=== PATIENT | male | born 1945 | race Caucasian/White ===

== ENCOUNTER 2023-02-03 09:58 | Inpatient (IN) | payer MEDICARE ==
[~2023-02-03] VITALS: Ht 170.2 cm; Wt 53.1 kg
[2023-02-03] MEDS ORDERED: METO-356 PO (10:34)
[2023-02-03] MEDS ORDERED: OMEP20TA5 PO (10:34)
[2023-02-03] MEDS ORDERED: ESCI20TA44 PO (10:34)
[2023-02-03] MEDS ORDERED: CLOP75TA15 PO (10:34)
[2023-02-03] MEDS ORDERED: LEVO112T5 PO (10:34)
[2023-02-03] MEDS ORDERED: SIMV-49 PO (10:34)
[2023-02-03] MEDS ORDERED: MEGE20TA4 PO (10:34)
[2023-02-03] MEDS ORDERED: IV NORMAL SALINE 1000 ML BAG IV ONE ×2 (11:00→12:15)
[2023-02-03 11:29] LABS: BASOPHILS # (AUTO) 0.1 K/UL (0.0-0.2); BASOPHILS % (AUTO) 0.7 % (0.0-2.0); DIFFERENTIAL COMMENT 1; EOSINOPHILS # (AUTO) 0.2 K/uL (0.0-0.7); EOSINOPHILS % (AUTO) 2.8 % (0.0-7.0); HEMATOCRIT 37.8 % (36.7-47.1); HEMOGLOBIN 12.7 g/dL (12.5-16.3); LYMPHOCYTES # (AUTO) 1.1 K/uL (0.8-4.8); LYMPHOCYTES % (AUTO) 13.3 % (20.5-51.5); MEAN CORPUSCULAR HEMOGLOBIN 32.2 uug (23.8-33.4); MEAN CORPUSCULAR HGB CONC 34 g/dL (32.5-36.3); MEAN CORPUSCULAR VOLUME 95.6 fL (73.0-96.2); MONOCYTES # (AUTO) 0.8 K/uL (0.1-1.30); MONOCYTES % (AUTO) 9.7 % (0.0-11.0); NEUTROPHILS # (AUTO) 6.3 K/uL (1.8-8.9); NEUTROPHILS % (AUTO) 73.5 % (38.5-71.5); PLATELET COUNT (AUTO) 248 K/uL (152-348); RED BLOOD CELL COUNT(AUTO) 3.95 MIL/uL (4.06-5.63); RED CELL DISTRIBUTION WIDTH 14.4 % (12.1-16.2); WHITE BLOOD COUNT (AUTO) 8.5 K/uL (3.6-10.2)
[2023-02-03 11:58] LABS: BILIRUBIN,TOTAL 0.5 mg/dL (0.2-1.0); CALCIUM 8.8 mg/dL (8.5-10.1); CREATININE 0.9 mg/dL (0.6-1.3); POTASSIUM 3.4 mmol/L (3.5-5.1); TOTAL PROTEIN, SERUM 7.8 g/dL (6.4-8.2)
[2023-02-03 12:00] LABS: LACTIC ACID 2.6 mmol/L (0.4-2.0)
[2023-02-03] MEDS ORDERED: ONDANSETRON 4 MG/2 ML VIAL IV ONE (12:15)
[2023-02-03] MEDS ORDERED: levoFLOXacin 500 MG/D5W 100ML PIGGYBACK IV ONE (12:15)
[2023-02-03] MEDS ORDERED: MORPHINE SULFATE 4 MG/1 ML DISP.SYRIN IV ONE (12:15)
[2023-02-03] MEDS ORDERED: MORPHINE SULFATE 4 MG/1 ML DISP.SYRIN ONE (13:06)
[2023-02-03] MEDS ORDERED: levoFLOXacin 500 MG/D5W 100 ML ONE (13:06)
[2023-02-03] MEDS ORDERED: ONDANSETRON 4 MG/2 ML VIAL ONE (13:06)
[2023-02-03] MEDS ORDERED: ENOXAPARIN SODIUM 40 MG/0.4 ML DISP.SYRIN SQ SCH (13:30)
[2023-02-03] MEDS ORDERED: REMEDY ESSENTIAL ZINC PASTE 113 GM TP PRN (13:30)
[2023-02-03] MEDS ORDERED: MAGNESIUM HYDROXIDE 30 ML LIQUID UDC PO PRN (13:30)
[2023-02-03] MEDS ORDERED: ACETAMINOPHEN 325 MG TABLET PO PRN (13:30)
[2023-02-03] MEDS ORDERED: ONDANSETRON 4 MG/2 ML VIAL IV PRN (13:30)
[2023-02-03 13:41] LABS: *BILIRUBIN,URIN NEGATIVE (NEGATIVE); *BLOOD, URINE NEGATIVE (NEGATIVE); *CLARITY,URINE CLEAR (CLEAR); *COLOR,URINE YELLOW (YELLOW); *KETONES,URINE 2+ (NEGATIVE); *PROTEIN,URINE NEGATIVE (NEGATIVE); LEUKOCYTE ESTERASE ,URINE NEGATIVE (NEGATIVE); NITRITE, URINE NEGATIVE (NEGATIVE); UGLUCOSE NEGATIVE (NEGATIVE)
[2023-02-03] MEDS ORDERED: ENOXAPARIN SODIUM 40 MG/0.4 ML DISP.SYRIN SQ ONE (14:04)
[2023-02-03 14:15] LABS: BACTERIA,URINE NONE SEEN /HPF (NONE SEEN); RBC,URINE NONE SEEN /HPF (0-3); SQUAMOUS EPITHELIAL CELL,UR FEW /HPF (NONE SEEN); WBC,URINE 0-3 /HPF (0-3)
[2023-02-03] MEDS: MEGESTROL ACETATE 20 MG TABLET PO SCH (18:01)
[2023-02-03] MEDS ORDERED: SIMVASTATIN 40 MG TABLET ONE (18:35)
[2023-02-03] MEDS: SIMVASTATIN 40 MG TABLET PO SCH (18:37)
[2023-02-03] MEDS ORDERED: HYDROCODONE/APAP 5-325MG TABLET ONE (20:50)
[2023-02-03] MEDS: HYDROCODONE/APAP 5-325MG TABLET PO PRN (20:55)
[2023-02-03 21:43] VITALS: BP 112/61; TEMP 98.4; O2SAT 95
[2023-02-04 04:12] VITALS: BP 128/67; TEMP 98; O2SAT 97
[2023-02-04] MEDS: LEVOTHYROXINE SODIUM 112 MCG TABLET PO SCH (06:27)
[2023-02-04] MEDS: PANTOPRAZOLE SODIUM 40 MG TABLET.DR PO SCH (06:27)
[2023-02-04] MEDS: HYDROCODONE/APAP 5-325MG TABLET PO PRN ×3 (06:36→16:28)
[2023-02-04 06:38] LABS: BASOPHILS # (AUTO) 0.1 K/UL (0.0-0.2); BASOPHILS % (AUTO) 1.1 % (0.0-2.0); EOSINOPHILS # (AUTO) 0.2 K/uL (0.0-0.7); EOSINOPHILS % (AUTO) 3.8 % (0.0-7.0); HEMATOCRIT 32.9 % (36.7-47.1); HEMOGLOBIN 11.5 g/dL (12.5-16.3); LYMPHOCYTES % (AUTO) 17.8 % (20.5-51.5); MEAN CORPUSCULAR HEMOGLOBIN 32.9 uug (23.8-33.4); MEAN CORPUSCULAR HGB CONC 35 g/dL (32.5-36.3); MONOCYTES # (AUTO) 0.7 K/uL (0.1-1.30); MONOCYTES % (AUTO) 11.7 % (0.0-11.0); NEUTROPHILS # (AUTO) 3.7 K/uL (1.8-8.9); NEUTROPHILS % (AUTO) 65.6 % (38.5-71.5); PLATELET COUNT (AUTO) 223 K/uL (152-348); RED CELL DISTRIBUTION WIDTH 14.5 % (12.1-16.2); WHITE BLOOD COUNT (AUTO) 5.6 K/uL (3.6-10.2)
[2023-02-04 06:42] LABS: DIFFERENTIAL COMMENT 1
[2023-02-04 07:00] LABS: CALCIUM 8.2 mg/dL (8.5-10.1); CREATININE 0.8 mg/dL (0.6-1.3); MAGNESIUM 1.7 mg/dL (1.8-2.4); PHOSPHOROUS 2.4 mg/dL (2.5-4.9)
[2023-02-04 07:15] LABS: POTASSIUM 2.5 mmol/L (3.5-5.1)
[2023-02-04] MEDS ORDERED: POTASSIUM CHLORIDE 20 MEQ TAB.PRT.SR PO ONE (08:15)
[2023-02-04] MEDS: MEGESTROL ACETATE 20 MG TABLET PO SCH ×2 (08:44→16:28)
[2023-02-04] MEDS: CLOPIDOGREL 75 MG TABLET PO SCH (08:46)
[2023-02-04] MEDS: METOPROLOL SUCCINATE XL 25 MG TAB.SR.24H PO SCH (08:46)
[2023-02-04] MEDS: ENOXAPARIN SODIUM 40 MG/0.4 ML DISP.SYRIN SQ SCH ×2 (08:48→20:46)
[2023-02-04] MEDS ORDERED: MAGNESIUM OXIDE 400 MG TABLET PO ONE (11:00)
[2023-02-04] MEDS ORDERED: NEUTRA PHOS PACKET PO ONE (11:00)
[2023-02-04 13:55] VITALS: BP 111/60; TEMP 97; O2SAT 100
[2023-02-04 16:03] VITALS: BP 149/63; TEMP 97.2; O2SAT 97
[2023-02-04] MEDS: SIMVASTATIN 40 MG TABLET PO SCH (17:07)
[2023-02-04] MEDS: MORPHINE SULFATE 4 MG/1 ML DISP.SYRIN IV PRN (17:53)
[2023-02-04 20:28] VITALS: BP 125/68; TEMP 99; O2SAT 95
[2023-02-05 04:34] VITALS: BP 150/70; TEMP 98.2; O2SAT 96
[2023-02-05] MEDS: LEVOTHYROXINE SODIUM 112 MCG TABLET PO SCH (06:21)
[2023-02-05] MEDS: PANTOPRAZOLE SODIUM 40 MG TABLET.DR PO SCH (06:21)
[2023-02-05] MEDS: MORPHINE SULFATE 4 MG/1 ML DISP.SYRIN IV PRN (06:58)
[2023-02-05 07:06] LABS: CALCIUM 8.2 mg/dL (8.5-10.1); CREATININE 0.7 mg/dL (0.6-1.3); MAGNESIUM 1.8 mg/dL (1.8-2.4); PHOSPHOROUS 2.2 mg/dL (2.5-4.9); POTASSIUM 2.9 mmol/L (3.5-5.1)
[2023-02-05] MEDS: MEGESTROL ACETATE 20 MG TABLET PO SCH ×2 (08:58→16:55)
[2023-02-05] MEDS: CLOPIDOGREL 75 MG TABLET PO SCH (08:58)
[2023-02-05] MEDS: METOPROLOL SUCCINATE XL 25 MG TAB.SR.24H PO SCH (08:58)
[2023-02-05] MEDS: HYDROCODONE/APAP 5-325MG TABLET PO PRN ×3 (09:04→19:36)
[2023-02-05] MEDS: POTASSIUM CHLORIDE 10 MEQ TAB.PRT.SR PO SCH ×3 (10:43→15:24)
[2023-02-05 11:20] VITALS: BP 129/59; TEMP 98.4; O2SAT 97
[2023-02-05 15:08] VITALS: BP 148/65; TEMP 98; O2SAT 96
[2023-02-05] MEDS ORDERED: NEUTRA PHOS PACKET PO SCH (16:30)
[2023-02-05] MEDS: SIMVASTATIN 40 MG TABLET PO SCH (16:56)
[2023-02-05] MEDS: ENOXAPARIN SODIUM 40 MG/0.4 ML DISP.SYRIN SQ SCH (20:20)
[2023-02-05 20:21] VITALS: BP 99/73; TEMP 98.2; O2SAT 98
[2023-02-06 04:25] VITALS: BP 165/67; TEMP 98.1
[2023-02-06] MEDS: HYDROCODONE/APAP 5-325MG TABLET PO PRN (06:34)
[2023-02-06] MEDS: LEVOTHYROXINE SODIUM 112 MCG TABLET PO SCH (06:34)
[2023-02-06] MEDS: PANTOPRAZOLE SODIUM 40 MG TABLET.DR PO SCH (06:34)
[2023-02-06 06:58] LABS: CREATININE 0.7 mg/dL (0.6-1.3); PHOSPHOROUS 2.7 mg/dL (2.5-4.9); POTASSIUM 4.3 mmol/L (3.5-5.1)
[2023-02-06 07:14] LABS: CALCIUM 9.2 mg/dL (8.5-10.1)
[2023-02-06 07:33] LABS: BASOPHILS # (AUTO) 0.1 K/UL (0.0-0.2); BASOPHILS % (AUTO) 0.8 % (0.0-2.0); EOSINOPHILS # (AUTO) 0.1 K/uL (0.0-0.7); EOSINOPHILS % (AUTO) 1.7 % (0.0-7.0); HEMATOCRIT 39.3 % (36.7-47.1); HEMOGLOBIN 13.6 g/dL (12.5-16.3); LYMPHOCYTES % (AUTO) 12.9 % (20.5-51.5); MEAN CORPUSCULAR HEMOGLOBIN 32.8 uug (23.8-33.4); MEAN CORPUSCULAR HGB CONC 35 g/dL (32.5-36.3); MONOCYTES # (AUTO) 0.7 K/uL (0.1-1.30); NEUTROPHILS # (AUTO) 6.1 K/uL (1.8-8.9); NEUTROPHILS % (AUTO) 75.6 % (38.5-71.5); PLATELET COUNT (AUTO) 293 K/uL (152-348); RED BLOOD CELL COUNT(AUTO) 4.14 MIL/uL (4.06-5.63); RED CELL DISTRIBUTION WIDTH 14.5 % (12.1-16.2); WHITE BLOOD COUNT (AUTO) 8.1 K/uL (3.6-10.2)
[2023-02-06 07:48] LABS: DIFFERENTIAL COMMENT 1
[2023-02-06 08:01] LABS: MAGNESIUM 1.9 mg/dL (1.8-2.4); PHOSPHOROUS 2.8 mg/dL (2.5-4.9)
[2023-02-06] MEDS: MEGESTROL ACETATE 20 MG TABLET PO SCH ×2 (08:44→16:38)
[2023-02-06] MEDS: METOPROLOL SUCCINATE XL 25 MG TAB.SR.24H PO SCH (08:44)
[2023-02-06] MEDS: CLOPIDOGREL 75 MG TABLET PO SCH (08:44)
[2023-02-06] MEDS: PREGABALIN 25 MG CAPSULE PO SCH ×2 (09:40→16:38)
[2023-02-06] MEDS: MORPHINE SULFATE 4 MG/1 ML DISP.SYRIN IV PRN (09:42)
[2023-02-06 11:24] VITALS: BP 108/80; TEMP 98.2; O2SAT 96
[2023-02-06] MEDS ORDERED: PREG25CA PO (12:42)
[2023-02-06] MEDS ORDERED: LEVO125T8 PO (12:42)
[2023-02-06 15:19] VITALS: BP 111/61; TEMP 98.2; O2SAT 96
[2023-02-06] MEDS ORDERED: ENSURE ENLIVE (VAN) 240 ML LIQUID PO SCH (17:00)
[2023-02-06] MEDS: SIMVASTATIN 40 MG TABLET PO SCH (17:30)
[2023-02-07] MEDS ORDERED: LEVOTHYROXINE SODIUM 125 MCG TABLET PO SCH (07:00)
== END 2023-02-06 18:00 | DRG 92 ==
LOC: ER 09:58 → TRANSITION 17:18 → MEDSURG3 20:41
PROVIDERS: ADMIT Nurse Practitioner Acute Care; ATTEND Nurse Practitioner Acute Care
DX: G72.3 Periodic paralysis (principal); C34.90 Malignant neoplasm of unspecified part of unspecified bronchus or lung; R53.1 Weakness; R29.6 Repeated falls; E86.0 Dehydration; E03.9 Hypothyroidism, unspecified; K21.9 Gastro-esophageal reflux disease without esophagitis; Z91.199 Patient's noncompliance with other medical treatment and regimen due to unspecified reason; Z91.148 Patient's other noncompliance with medication regimen for other reason; Z86.73 Personal history of transient ischemic attack (TIA), and cerebral infarction without residual deficits; Z88.0 Allergy status to penicillin; M54.50 Low back pain, unspecified; S22.43XD Multiple fractures of ribs, bilateral, subsequent encounter for fracture with routine healing; W19.XXXD Unspecified fall, subsequent encounter; G93.89 Other specified disorders of brain
CPT/HCPCS: 36415; 70450; 71045; 83605; 83735; 84100; 84443; 84484; 85025; G0378; J1650; J1956; J2270; J2405; J7040

== ENCOUNTER 2023-02-06 17:20 | Inpatient (IN) | payer MEDICARE ==
[~2023-02-06] VITALS: Ht 170.2 cm; Wt 51.7 kg
[~2023-02-06 17:20] MED LIST: CLOP75TA15 PO; ESCI20TA44 PO; LEVO112T5 PO; LEVO125T8 PO; MEGE20TA4 PO; METO-356 PO; OMEP20TA5 PO; PREG25CA PO; SIMV-49 PO
[2023-02-06] MEDS ORDERED: REMEDY ESSENTIAL ZINC PASTE 113 GM TOP PRN (20:15)
[2023-02-06 20:27] VITALS: BP 121/66; TEMP 98.3; O2SAT 95
[2023-02-06] MEDS ORDERED: ACETAMINOPHEN 325 MG TABLET PO PRN (21:00)
[2023-02-06] MEDS ORDERED: TRAMADOL HCL 50 MG TABLET PO PRN (21:00)
[2023-02-07 04:20] VITALS: BP 112/73; TEMP 98.3; O2SAT 96
[2023-02-07 07:45] VITALS: BP 141/68; TEMP 98.1; O2SAT 96
[2023-02-07] MEDS: DULOXETINE 30 MG CAPSULE.DR PO SCH (10:37)
[2023-02-07] MEDS: ENSURE ENLIVE (VAN) 240 ML LIQUID PO SCH ×2 (13:48→17:44)
[2023-02-07 16:00] VITALS: BP 121/52; TEMP 98.4; O2SAT 98
[2023-02-07] MEDS ORDERED: HYDROCODONE/APAP 5-325MG TABLET PO PRN (17:45)
[2023-02-07] MEDS ORDERED: IV NORMAL SALINE 250 ML IV ONE (17:47)
[2023-02-07] MEDS ORDERED: SWABABLE VALVE TRANSFER SET EA MC ONE (17:47)
[2023-02-07] MEDS ORDERED: IOHEXOL 300MG/ML 100 ML INFUS..BTL ONE (17:47)
[2023-02-07] MEDS: CLOPIDOGREL 75 MG TABLET PO SCH (17:50)
[2023-02-07 20:20] VITALS: BP 127/69; TEMP 97.9; O2SAT 97
[2023-02-07] MEDS ORDERED: SIMVASTATIN 40 MG TABLET PO SCH (21:00)
[2023-02-08 04:25] VITALS: BP 147/78; TEMP 97.7; O2SAT 97
[2023-02-08] MEDS ORDERED: LEVOTHYROXINE SODIUM 125 MCG TABLET PO SCH (07:00)
[2023-02-08 08:00] VITALS: BP 101/68; TEMP 97.7; O2SAT 98
[2023-02-08] MEDS: DULOXETINE 30 MG CAPSULE.DR PO SCH (08:21)
[2023-02-08] MEDS: ENSURE ENLIVE (VAN) 240 ML LIQUID PO SCH ×3 (08:21→16:13)
[2023-02-08] MEDS: CLOPIDOGREL 75 MG TABLET PO SCH (08:21)
[2023-02-08] MEDS: MEGESTROL ACETATE 20 MG TABLET PO SCH ×2 (09:03→16:13)
[2023-02-08] MEDS: METOPROLOL SUCCINATE XL 25 MG TAB.SR.24H PO SCH (09:04)
[2023-02-08] MEDS: PREGABALIN 25 MG CAPSULE PO SCH ×2 (09:04→16:13)
[2023-02-08 10:12] LABS: THYROID STIMULATING HORMONE 43.362 mIU/mL (0.358-3.740)
[2023-02-08 15:53] VITALS: BP 103/57; TEMP 98.3; O2SAT 97
[2023-02-08 20:13] VITALS: BP 133/73; TEMP 98.4; O2SAT 100
[2023-02-08] MEDS: SIMVASTATIN 10 MG TABLET PO SCH (20:26)
[2023-02-09 06:03] VITALS: BP 122/76; TEMP 98; O2SAT 98
[2023-02-09] MEDS: LEVOTHYROXINE SODIUM 150 MCG TABLET PO SCH (06:08)
[2023-02-09] MEDS: HYDROCODONE/APAP 10-325 MG TABLET PO PRN ×2 (06:09→20:18)
[2023-02-09 07:49] VITALS: BP 110/74; TEMP 99; O2SAT 97
[2023-02-09] MEDS: CLOPIDOGREL 75 MG TABLET PO SCH (08:10)
[2023-02-09] MEDS: MEGESTROL ACETATE 20 MG TABLET PO SCH ×2 (08:10→16:20)
[2023-02-09] MEDS: ENSURE ENLIVE (VAN) 240 ML LIQUID PO SCH ×3 (08:10→16:20)
[2023-02-09] MEDS: DULOXETINE 30 MG CAPSULE.DR PO SCH (08:10)
[2023-02-09] MEDS: PREGABALIN 25 MG CAPSULE PO SCH ×2 (08:10→16:20)
[2023-02-09] MEDS: METOPROLOL SUCCINATE XL 25 MG TAB.SR.24H PO SCH (08:10)
[2023-02-09 16:00] VITALS: BP 120/53; TEMP 98.7; O2SAT 96
[2023-02-09 20:00] VITALS: BP 107/52; TEMP 98.6; O2SAT 96
[2023-02-09] MEDS: SIMVASTATIN 10 MG TABLET PO SCH (20:18)
[2023-02-10] MEDS: HYDROCODONE/APAP 10-325 MG TABLET PO PRN ×2 (05:36→12:48)
[2023-02-10] MEDS: LEVOTHYROXINE SODIUM 150 MCG TABLET PO SCH (06:22)
[2023-02-10 08:00] VITALS: BP 95/72; TEMP 98.3; O2SAT 96
[2023-02-10] MEDS: PREGABALIN 25 MG CAPSULE PO SCH ×2 (08:03→16:25)
[2023-02-10] MEDS: MEGESTROL ACETATE 20 MG TABLET PO SCH ×2 (08:03→16:25)
[2023-02-10] MEDS: METOPROLOL SUCCINATE XL 25 MG TAB.SR.24H PO SCH (08:03)
[2023-02-10] MEDS: DULOXETINE 30 MG CAPSULE.DR PO SCH (08:03)
[2023-02-10] MEDS: CLOPIDOGREL 75 MG TABLET PO SCH (08:03)
[2023-02-10] MEDS: ENSURE ENLIVE (VAN) 240 ML LIQUID PO SCH ×3 (08:04→16:25)
[2023-02-10] MEDS: LIDOCAINE 5% PATCH TD SCH (08:12)
[2023-02-10 16:25] VITALS: BP 115/61; TEMP 98.1; O2SAT 100
[2023-02-10] MEDS: SIMVASTATIN 10 MG TABLET PO SCH (22:00)
[2023-02-10 22:14] VITALS: BP 114/59; TEMP 98; O2SAT 96
[2023-02-11 04:00] VITALS: BP 109/61; TEMP 98.1; O2SAT 95
[2023-02-11] MEDS: HYDROCODONE/APAP 10-325 MG TABLET PO PRN ×2 (04:27→21:36)
[2023-02-11 05:06] VITALS: BP 109/61; TEMP 98.1
[2023-02-11] MEDS: LEVOTHYROXINE SODIUM 150 MCG TABLET PO SCH (07:14)
[2023-02-11 07:42] VITALS: BP 129/58; TEMP 98.2; O2SAT 98
[2023-02-11] MEDS: LIDOCAINE 5% PATCH TD SCH (08:20)
[2023-02-11] MEDS: PREGABALIN 25 MG CAPSULE PO SCH ×2 (08:20→16:41)
[2023-02-11] MEDS: MEGESTROL ACETATE 20 MG TABLET PO SCH ×2 (08:21→16:41)
[2023-02-11] MEDS: DULOXETINE 30 MG CAPSULE.DR PO SCH (08:21)
[2023-02-11] MEDS: CLOPIDOGREL 75 MG TABLET PO SCH (08:21)
[2023-02-11] MEDS: METOPROLOL SUCCINATE XL 25 MG TAB.SR.24H PO SCH (08:21)
[2023-02-11] MEDS: ENSURE ENLIVE (VAN) 240 ML LIQUID PO SCH ×3 (08:22→16:41)
[2023-02-11 16:00] VITALS: BP 121/62; TEMP 98.6; O2SAT 99
[2023-02-11 20:00] VITALS: BP 134/36; TEMP 98; O2SAT 100
[2023-02-11] MEDS: SIMVASTATIN 10 MG TABLET PO SCH (20:32)
[2023-02-12 04:00] VITALS: BP 154/69; TEMP 98.2; O2SAT 99
[2023-02-12] MEDS: LEVOTHYROXINE SODIUM 150 MCG TABLET PO SCH (06:34)
[2023-02-12] MEDS: HYDROCODONE/APAP 10-325 MG TABLET PO PRN (06:56)
[2023-02-12 08:00] VITALS: BP 126/70; TEMP 97.8; O2SAT 99
[2023-02-12] MEDS: MEGESTROL ACETATE 20 MG TABLET PO SCH ×2 (08:01→16:15)
[2023-02-12] MEDS: DULOXETINE 30 MG CAPSULE.DR PO SCH (08:01)
[2023-02-12] MEDS: PREGABALIN 25 MG CAPSULE PO SCH ×2 (08:01→16:15)
[2023-02-12] MEDS: ENSURE ENLIVE (VAN) 240 ML LIQUID PO SCH ×3 (08:02→16:04)
[2023-02-12] MEDS: METOPROLOL SUCCINATE XL 25 MG TAB.SR.24H PO SCH (08:02)
[2023-02-12] MEDS: CLOPIDOGREL 75 MG TABLET PO SCH (08:02)
[2023-02-12] MEDS: LIDOCAINE 5% PATCH TD SCH (08:02)
[2023-02-12 16:11] VITALS: BP 104/63; TEMP 97.3; O2SAT 97
[2023-02-12] MEDS: SIMVASTATIN 10 MG TABLET PO SCH (21:08)
[2023-02-13 04:59] VITALS: BP 118/77; TEMP 98.3; O2SAT 96
[2023-02-13] MEDS: LEVOTHYROXINE SODIUM 150 MCG TABLET PO SCH (06:34)
[2023-02-13] MEDS: DULOXETINE 30 MG CAPSULE.DR PO SCH (08:04)
[2023-02-13] MEDS: CLOPIDOGREL 75 MG TABLET PO SCH (08:04)
[2023-02-13] MEDS: METOPROLOL SUCCINATE XL 25 MG TAB.SR.24H PO SCH (08:04)
[2023-02-13] MEDS: PREGABALIN 25 MG CAPSULE PO SCH ×2 (08:04→16:03)
[2023-02-13] MEDS: MEGESTROL ACETATE 20 MG TABLET PO SCH ×2 (08:04→16:03)
[2023-02-13] MEDS: LIDOCAINE 5% PATCH TD SCH (08:05)
[2023-02-13] MEDS: ENSURE ENLIVE (VAN) 240 ML LIQUID PO SCH ×3 (08:05→16:03)
[2023-02-13 08:29] VITALS: BP 117/71; TEMP 98.4; O2SAT 99
[2023-02-13 16:23] VITALS: BP 114/58; TEMP 98.5; O2SAT 96
[2023-02-13 20:00] VITALS: BP 109/55; TEMP 98.2; O2SAT 98
[2023-02-13] MEDS: SIMVASTATIN 10 MG TABLET PO SCH (21:16)
[2023-02-14 04:00] VITALS: BP 107/59; TEMP 98; O2SAT 99
[2023-02-14] MEDS: LEVOTHYROXINE SODIUM 150 MCG TABLET PO SCH (06:41)
[2023-02-14 07:50] VITALS: BP 126/54; TEMP 98.1; O2SAT 97
[2023-02-14] MEDS: MEGESTROL ACETATE 20 MG TABLET PO SCH ×2 (08:13→16:23)
[2023-02-14] MEDS: CLOPIDOGREL 75 MG TABLET PO SCH (08:13)
[2023-02-14] MEDS: DULOXETINE 30 MG CAPSULE.DR PO SCH (08:13)
[2023-02-14] MEDS: METOPROLOL SUCCINATE XL 25 MG TAB.SR.24H PO SCH (08:13)
[2023-02-14] MEDS: PREGABALIN 25 MG CAPSULE PO SCH ×2 (08:13→16:23)
[2023-02-14] MEDS: ENSURE ENLIVE (VAN) 240 ML LIQUID PO SCH ×3 (08:14→16:23)
[2023-02-14] MEDS: LIDOCAINE 5% PATCH TD SCH (08:17)
[2023-02-14 15:14] VITALS: BP 110/72; TEMP 97.9; O2SAT 96
[2023-02-14] MEDS: SIMVASTATIN 10 MG TABLET PO SCH (20:03)
[2023-02-14 21:35] VITALS: BP 122/71; TEMP 98; O2SAT 99
[2023-02-15 05:45] VITALS: BP 125/68; TEMP 98; O2SAT 99
[2023-02-15] MEDS: LEVOTHYROXINE SODIUM 150 MCG TABLET PO SCH (06:03)
[2023-02-15 07:37] VITALS: BP 134/55; TEMP 98.4; O2SAT 97
[2023-02-15 09:07] LABS: METHYLMALONIC ACID 111 nmol/L (0-378)
[2023-02-15] MEDS: PREGABALIN 25 MG CAPSULE PO SCH ×2 (09:22→16:47)
[2023-02-15] MEDS: DULOXETINE 30 MG CAPSULE.DR PO SCH (09:22)
[2023-02-15] MEDS: ENSURE ENLIVE (VAN) 240 ML LIQUID PO SCH ×3 (09:22→16:35)
[2023-02-15] MEDS: CLOPIDOGREL 75 MG TABLET PO SCH (09:23)
[2023-02-15] MEDS: MEGESTROL ACETATE 20 MG TABLET PO SCH ×2 (09:23→16:47)
[2023-02-15] MEDS: METOPROLOL SUCCINATE XL 25 MG TAB.SR.24H PO SCH (09:23)
[2023-02-15] MEDS: LIDOCAINE 5% PATCH TD SCH (09:24)
[2023-02-15] MEDS: HYDROCODONE/APAP 10-325 MG TABLET PO PRN ×3 (09:30→22:16)
[2023-02-15 15:17] VITALS: BP 103/64; TEMP 98; O2SAT 97
[2023-02-15 20:00] VITALS: BP 112/62; TEMP 98.5; O2SAT 98
[2023-02-15] MEDS: SIMVASTATIN 10 MG TABLET PO SCH (21:52)
[2023-02-16 05:37] VITALS: BP 116/55; TEMP 97.9; O2SAT 96
[2023-02-16] MEDS: LEVOTHYROXINE SODIUM 150 MCG TABLET PO SCH (06:57)
[2023-02-16] MEDS: HYDROCODONE/APAP 10-325 MG TABLET PO PRN ×2 (07:12→20:04)
[2023-02-16] MEDS: CLOPIDOGREL 75 MG TABLET PO SCH (08:04)
[2023-02-16] MEDS: MEGESTROL ACETATE 20 MG TABLET PO SCH ×2 (08:04→16:07)
[2023-02-16] MEDS: METOPROLOL SUCCINATE XL 25 MG TAB.SR.24H PO SCH (08:04)
[2023-02-16] MEDS: PREGABALIN 25 MG CAPSULE PO SCH ×2 (08:04→16:07)
[2023-02-16] MEDS: DULOXETINE 30 MG CAPSULE.DR PO SCH (08:04)
[2023-02-16] MEDS: LIDOCAINE 5% PATCH TD SCH (08:05)
[2023-02-16] MEDS: ENSURE ENLIVE (VAN) 240 ML LIQUID PO SCH ×3 (08:05→16:07)
[2023-02-16 08:06] VITALS: BP 135/50; TEMP 98.8; O2SAT 99
[2023-02-16 11:39] VITALS: BP 109/62; TEMP 98.3; O2SAT 97
[2023-02-16 15:35] VITALS: BP 103/62; TEMP 98.8; O2SAT 98
[2023-02-16] MEDS: SIMVASTATIN 10 MG TABLET PO SCH (20:00)
[2023-02-16 20:40] VITALS: BP 125/49; TEMP 98.2; O2SAT 95
[2023-02-17 04:46] VITALS: BP 131/65; TEMP 98.2; O2SAT 98
[2023-02-17] MEDS: LEVOTHYROXINE SODIUM 150 MCG TABLET PO SCH (06:02)
[2023-02-17 07:47] VITALS: BP 138/63; TEMP 98.2; O2SAT 97
[2023-02-17 08:16] VITALS: BP 138/63
[2023-02-17] MEDS: PREGABALIN 25 MG CAPSULE PO SCH (08:16)
[2023-02-17] MEDS: METOPROLOL SUCCINATE XL 25 MG TAB.SR.24H PO SCH (08:16)
[2023-02-17] MEDS: MEGESTROL ACETATE 20 MG TABLET PO SCH (08:16)
[2023-02-17] MEDS: LIDOCAINE 5% PATCH TD SCH (08:16)
[2023-02-17] MEDS: ENSURE ENLIVE (VAN) 240 ML LIQUID PO SCH (08:17)
[2023-02-17] MEDS: CLOPIDOGREL 75 MG TABLET PO SCH (08:17)
[2023-02-17] MEDS: DULOXETINE 30 MG CAPSULE.DR PO SCH (08:17)
== END 2023-02-17 10:55 | DRG 560 ==
PROVIDERS: ADMIT Physical Medicine & Rehabilitation Pain Medicine; ATTEND Physical Medicine & Rehabilitation Pain Medicine
DX: S32.059D Unspecified fracture of fifth lumbar vertebra, subsequent encounter for fracture with routine healing (principal); D68.59 Other primary thrombophilia; F03.918 Unspecified dementia, unspecified severity, with other behavioral disturbance; S32.10XD Unspecified fracture of sacrum, subsequent encounter for fracture with routine healing; R53.1 Weakness; E03.9 Hypothyroidism, unspecified; E78.5 Hyperlipidemia, unspecified; E83.39 Other disorders of phosphorus metabolism; F17.210 Nicotine dependence, cigarettes, uncomplicated; F39 Unspecified mood [affective] disorder; I10 Essential (primary) hypertension; S22.43XD Multiple fractures of ribs, bilateral, subsequent encounter for fracture with routine healing; W19.XXXD Unspecified fall, subsequent encounter; Z85.118 Personal history of other malignant neoplasm of bronchus and lung; Z86.73 Personal history of transient ischemic attack (TIA), and cerebral infarction without residual deficits; R62.7 Adult failure to thrive; G93.89 Other specified disorders of brain; G89.29 Other chronic pain; I70.8 Atherosclerosis of other arteries; K21.9 Gastro-esophageal reflux disease without esophagitis; M43.16 Spondylolisthesis, lumbar region; M81.0 Age-related osteoporosis without current pathological fracture; Z74.09 Other reduced mobility; Z88.0 Allergy status to penicillin; Z91.148 Patient's other noncompliance with medication regimen for other reason; R26.9 Unspecified abnormalities of gait and mobility
CPT/HCPCS: 36415; 70450; 71045; 82747; 83921; 84443; 85014; 97535-GO-CO; A4663; Q9967

== ENCOUNTER 2023-09-28 21:41 | Inpatient (IN) | payer MEDICARE ==
[~2023-09-28] VITALS: Ht 170.2 cm; Wt 43.5 kg
[~2023-09-28 21:41] MED LIST changes: -ESCI20TA44 PO; -LEVO112T5 PO
[2023-09-28 21:46] VITALS: BP 91/51; TEMP 99.2; O2SAT 95
[2023-09-28] MEDS ORDERED: MAG-83 PO (22:46)
[2023-09-28] MEDS ORDERED: POTA10CA43 PO (22:46)
[2023-09-28] MEDS ORDERED: PANT40TA2 PO (22:46)
[2023-09-28] MEDS ORDERED: LIOT25TA13 PO (22:46)
[2023-09-28] MEDS ORDERED: ESCI20TA PO (22:46)
[2023-09-28] MEDS ORDERED: FOLI1TAB94 PO (22:46)
[2023-09-28] MEDS ORDERED: ACET325C7 PO (22:46)
[2023-09-28] MEDS ORDERED: OMEP40CA21 PO (22:46)
[2023-09-28] MEDS ORDERED: LEVO500T90 PO (22:46)
[2023-09-28] MEDS ORDERED: TAMS-3 PO (22:46)
[2023-09-28] MEDS ORDERED: DUTA0.5C PO (22:46)
[2023-09-28] MEDS ORDERED: DIVA125C5 PO (22:46)
[2023-09-28] MEDS ORDERED: MAGN400O6 PO (22:46)
[2023-09-28] MEDS ORDERED: NORM100I4 IV (22:46)
[2023-09-28 22:51] VITALS: TEMP 98.4
[2023-09-28] MEDS ORDERED: IV NORMAL SALINE 100 ML BAG IV SCH (23:00)
[2023-09-28] MEDS ORDERED: MAGNESIUM HYDROXIDE 30 ML LIQUID UDC PO PRN (23:00)
[2023-09-28] MEDS ORDERED: MAG HYDROX/AL HYDROX/SIMETH 30 ML LIQUID UDC PO PRN (23:00)
[2023-09-28] MEDS ORDERED: ACETAMINOPHEN 325 MG TABLET PO PRN (23:00)
[2023-09-29 06:26] VITALS: BP 96/57; TEMP 98.5; O2SAT 94
[2023-09-29] MEDS ORDERED: LEVOTHYROXINE SODIUM 125 MCG TABLET PO SCH ×2 (07:00)
[2023-09-29] MEDS ORDERED: POTASSIUM CHLORIDE 10 MEQ TAB.PRT.SR PO SCH (09:00)
[2023-09-29] MEDS ORDERED: Medication Not On Formulary EA (Omeprazole 1 CAP) PO SCH (09:00)
[2023-09-29] MEDS ORDERED: PREGABALIN 25 MG CAPSULE PO SCH ×2 (09:00)
[2023-09-29] MEDS: DUTASTERIDE 0.5 MG CAPSULE PO SCH (10:31)
[2023-09-29] MEDS: LIOTHYRONINE SODIUM 25 MCG TABLET PO SCH (10:31)
[2023-09-29] MEDS: FOLIC ACID 1 MG TABLET PO SCH (10:31)
[2023-09-29] MEDS: DIVALPROEX SPRINKLE 125 MG CAP.SPRINK PO SCH (10:31)
[2023-09-29] MEDS: ESCITALOPRAM OXALATE 10 MG TABLET PO SCH (10:32)
[2023-09-29] MEDS: CLOPIDOGREL 75 MG TABLET PO SCH (10:32)
[2023-09-29] MEDS: MEGESTROL ACETATE 20 MG TABLET PO SCH (10:32)
[2023-09-29] MEDS: PANTOPRAZOLE SODIUM 40 MG TABLET.DR PO SCH (10:32)
[2023-09-29] MEDS: METOPROLOL SUCCINATE XL 25 MG TAB.SR.24H PO SCH (10:33)
[2023-09-29] MEDS ORDERED: levoFLOXacin 500 MG TABLET PO ONE (12:00)
[2023-09-29] MEDS: POTASSIUM CHLORIDE 10 MEQ TAB.PRT.SR PO SCH (12:18)
[2023-09-29] MEDS: levoFLOXacin 250 MG TABLET PO SCH (12:21)
[2023-09-29] MEDS ORDERED: FERR-68 PO (14:16)
[2023-09-29 15:06] VITALS: BP 108/56; TEMP 98.7; O2SAT 95
[2023-09-29] MEDS: SIMVASTATIN 40 MG TABLET PO SCH (20:55)
[2023-09-29] MEDS: TAMSULOSIN HCL 0.4 MG CAP.SR.24H PO SCH (20:55)
[2023-09-29 21:08] VITALS: BP 104/60; TEMP 98.2; O2SAT 96
[2023-09-30 06:16] VITALS: BP 101/66; TEMP 98.1; O2SAT 98
[2023-09-30] MEDS: FERROUS SULFATE 325 MG TABEC PO SCH (09:55)
[2023-09-30] MEDS: MEGESTROL ACETATE 20 MG TABLET PO SCH (09:55)
[2023-09-30 16:19] VITALS: BP 109/58; TEMP 97.8; O2SAT 97
[2023-09-30 20:09] VITALS: BP 90/51; TEMP 98; O2SAT 96
[2023-10-01 06:10] VITALS: BP 91/47; TEMP 97.9; O2SAT 96
[2023-10-01 16:10] VITALS: BP 96/52; TEMP 98; O2SAT 98
[2023-10-01 20:00] VITALS: TEMP 98
[2023-10-02] VITALS: TEMP 98.7
[2023-10-02 04:00] VITALS: TEMP 98.7
[2023-10-02 06:00] VITALS: TEMP 98.5
[2023-10-02 15:36] VITALS: BP 96/48; TEMP 98.4; O2SAT 96
[2023-10-02 20:19] VITALS: BP 92/51; TEMP 98; O2SAT 96
[2023-10-03 05:20] VITALS: BP 90/50; TEMP 98.1; O2SAT 96
[2023-10-03 10:24] VITALS: BP 101/59; TEMP 97; O2SAT 98
[2023-10-03 14:53] VITALS: BP 90/57; TEMP 98; O2SAT 99
[2023-10-03 20:00] VITALS: BP 95/55; TEMP 98.7; O2SAT 96
[2023-10-04 06:44] VITALS: BP 113/64; TEMP 98.4; O2SAT 96
[2023-10-04 07:31] LABS: EOSINOPHILS # (AUTO) 0.1 K/uL (0.0-0.7); EOSINOPHILS % (AUTO) 1.1 % (0.0-7.0); HEMATOCRIT 22.5 % (36.7-47.1); HEMOGLOBIN 7.5 g/dL (12.5-16.3); LYMPHOCYTES # (AUTO) 1.1 K/uL (0.8-4.8); LYMPHOCYTES % (AUTO) 22.7 % (20.5-51.5); MEAN CORPUSCULAR HEMOGLOBIN 29.8 uug (23.8-33.4); MEAN CORPUSCULAR HGB CONC 34 g/dL (32.5-36.3); MEAN CORPUSCULAR VOLUME 89.1 fL (73.0-96.2); MONOCYTES # (AUTO) 0.7 K/uL (0.1-1.30); MONOCYTES % (AUTO) 13.8 % (0.0-11.0); NEUTROPHILS % (AUTO) 61.4 % (38.5-71.5); PLATELET COUNT (AUTO) 358 K/uL (152-348); RED BLOOD CELL COUNT(AUTO) 2.52 MIL/uL (4.06-5.63); RED CELL DISTRIBUTION WIDTH 14.4 % (12.1-16.2); WHITE BLOOD COUNT (AUTO) 4.8 K/uL (3.6-10.2)
[2023-10-04 07:36] LABS: DIFFERENTIAL COMMENT 1
[2023-10-04 07:54] LABS: THYROID STIMULATING HORMONE 1.09 mIU/mL (0.358-3.740)
[2023-10-04 08:26] LABS: ALBUMIN 1.7 g/dL (3.4-5.0); BILIRUBIN,TOTAL 0.3 mg/dL (0.2-1.0); CREATININE 0.6 mg/dL (0.6-1.3); MAGNESIUM 1.6 mg/dL (1.8-2.4); PHOSPHOROUS 2.4 mg/dL (2.5-4.9); POTASSIUM 3.8 mmol/L (3.5-5.1); TOTAL PROTEIN, SERUM 6.6 g/dL (6.4-8.2)
[2023-10-04] MEDS: MAGNESIUM OXIDE 400 MG TABLET PO ONE (12:35)
[2023-10-04 15:09] VITALS: BP 96/55; TEMP 98.2; O2SAT 98
[2023-10-04] MEDS: NEUTRA PHOS PACKET PO ONE (17:59)
[2023-10-04 20:09] VITALS: BP 91/54; TEMP 98.4; O2SAT 97
[2023-10-05 06:00] VITALS: BP 108/60; TEMP 98.2; O2SAT 98
[2023-10-05 16:50] VITALS: BP 92/53; TEMP 98.1; O2SAT 98
[2023-10-05 20:00] VITALS: BP 100/58; TEMP 99.1; O2SAT 99
[2023-10-06 06:00] VITALS: BP 104/79; TEMP 98.8; O2SAT 98
[2023-10-06 15:48] VITALS: BP 99/45; TEMP 98.4; O2SAT 95
[2023-10-06 20:00] VITALS: BP 88/52; TEMP 98.5; O2SAT 97
[2023-10-07 06:31] VITALS: BP 93/52; TEMP 98.2; O2SAT 97
[2023-10-07] MEDS: ENSURE WITH FIBER 237 ML LIQUID (CHOCOLATE) PO SCH (12:28)
[2023-10-07 16:00] VITALS: BP 91/56; TEMP 98.2; O2SAT 97
[2023-10-07] MEDS ORDERED: EPOETIN ALFA 10,000 UNITS/ML VIAL SQ ONE (18:15)
[2023-10-07] MEDS: EPOETIN ALFA-EPBX 10,000 UNIT/ML VIAL SQ ONE (18:26)
[2023-10-07 20:00] VITALS: TEMP 98.3
[2023-10-08] VITALS: TEMP 98.4
[2023-10-08 04:00] VITALS: TEMP 98.2
[2023-10-08 06:00] VITALS: TEMP 98.4
[2023-10-08 06:28] LABS: BASOPHILS # (AUTO) 0.1 K/UL (0.0-0.2); BASOPHILS % (AUTO) 2.8 % (0.0-2.0); EOSINOPHILS % (AUTO) 0.9 % (0.0-7.0); HEMATOCRIT 27.6 % (36.7-47.1); HEMOGLOBIN 8.8 g/dL (12.5-16.3); LYMPHOCYTES # (AUTO) 1.1 K/uL (0.8-4.8); LYMPHOCYTES % (AUTO) 26.2 % (20.5-51.5); MEAN CORPUSCULAR HEMOGLOBIN 28.8 uug (23.8-33.4); MEAN CORPUSCULAR HGB CONC 32 g/dL (32.5-36.3); MEAN CORPUSCULAR VOLUME 90.2 fL (73.0-96.2); MONOCYTES # (AUTO) 0.7 K/uL (0.1-1.30); MONOCYTES % (AUTO) 15.9 % (0.0-11.0); NEUTROPHILS # (AUTO) 2.3 K/uL (1.8-8.9); NEUTROPHILS % (AUTO) 54.2 % (38.5-71.5); PLATELET COUNT (AUTO) 374 K/uL (152-348); RED BLOOD CELL COUNT(AUTO) 3.06 MIL/uL (4.06-5.63); RED CELL DISTRIBUTION WIDTH 15.1 % (12.1-16.2); WHITE BLOOD COUNT (AUTO) 4.3 K/uL (3.6-10.2)
[2023-10-08 06:38] LABS: DIFFERENTIAL COMMENT 1
[2023-10-08 07:18] LABS: ALBUMIN 2.3 g/dL (3.4-5.0); BILIRUBIN,TOTAL 0.4 mg/dL (0.2-1.0); CREATININE 0.7 mg/dL (0.6-1.3); PHOSPHOROUS 3.3 mg/dL (2.5-4.9); POTASSIUM 4.5 mmol/L (3.5-5.1); TOTAL PROTEIN, SERUM 7.7 g/dL (6.4-8.2)
[2023-10-08] MEDS: PROTEIN SUPPLEMENT (PROSTAT) 30 ML LIQUID PO SCH (09:31)
[2023-10-08 15:00] VITALS: BP 95/54; TEMP 98.4; O2SAT 93
[2023-10-08 17:23] LABS: LYMPHOCYTES % (MANUAL) 29 % (20-40); MONOCYTES % (MANUAL) 12 % (2-10); NEUTROPHILS % (MANUAL) 59 % (42-75)
[2023-10-08 17:24] LABS: ANISOCYTOSIS 1+; PLATELET ESTIMATE ADEQUATE
[2023-10-08 20:55] VITALS: BP 91/53; TEMP 98.2; O2SAT 97
[2023-10-09 05:10] LABS: *OCCULT BLOOD STOOL NEGATIVE (NEGATIVE)
[2023-10-09] MEDS ORDERED: IV NS 1000 ML 1,000 ML IV ONE (11:45)
[2023-10-09] MEDS: IV NS 1000 ML 1,000 ML IV SCH (12:10)
[2023-10-09 15:42] VITALS: BP 88/50; TEMP 97.8; O2SAT 97
[2023-10-09 20:00] VITALS: TEMP 98.4
[2023-10-10] MEDS ORDERED: IV NS 1000 ML 1,000 ML IV SCH (01:05)
[2023-10-10 04:00] VITALS: TEMP 98.3
[2023-10-10 14:00] VITALS: BP 95/51; TEMP 97.8; O2SAT 90
[2023-10-10 20:00] VITALS: BP 81/49; TEMP 98.7; O2SAT 100
[2023-10-10 21:58] VITALS: BP 92/51
[2023-10-11 06:11] VITALS: BP 97/58; TEMP 98; O2SAT 99
[2023-10-11 15:17] VITALS: BP 96/54; TEMP 98.3; O2SAT 100
[2023-10-11] MEDS: MODAFINIL 100 MG TABLET PO SCH (15:27)
[2023-10-11 20:00] VITALS: BP 92/56; TEMP 98.4; O2SAT 98
[2023-10-12 06:00] VITALS: BP 90/55; TEMP 97.8; O2SAT 97
[2023-10-12 12:00] VITALS: BP 98/51; TEMP 98.2; O2SAT 94
[2023-10-12 16:00] VITALS: BP 98/55; TEMP 97.6; O2SAT 99
[2023-10-12 20:00] VITALS: BP 89/53; TEMP 99.2; O2SAT 97
[2023-10-12] MEDS: TAMSULOSIN HCL 0.4 MG CAP.SR.24H PO SCH (21:13)
[2023-10-13 05:56] VITALS: BP 96/57; TEMP 98.5; O2SAT 95
[2023-10-13 12:00] VITALS: BP 109/52; TEMP 98.7
== END 2023-10-13 15:35 | DRG 689 ==
PROVIDERS: ADMIT Physical Medicine & Rehabilitation; ATTEND Physical Medicine & Rehabilitation Pain Medicine
DX: N39.0 Urinary tract infection, site not specified (principal); E43 Unspecified severe protein-calorie malnutrition; G93.41 Metabolic encephalopathy; C83.10 Mantle cell lymphoma, unspecified site; F01.53 Vascular dementia, unspecified severity, with mood disturbance; R64 Cachexia; Z68.1 Body mass index [BMI] 19.9 or less, adult; R53.1 Weakness; D63.8 Anemia in other chronic diseases classified elsewhere; E03.9 Hypothyroidism, unspecified; E78.5 Hyperlipidemia, unspecified; B96.89 Other specified bacterial agents as the cause of diseases classified elsewhere; E86.0 Dehydration; E88.09 Other disorders of plasma-protein metabolism, not elsewhere classified; I11.0 Hypertensive heart disease with heart failure; I50.9 Heart failure, unspecified; R62.7 Adult failure to thrive; Z66 Do not resuscitate; Z85.118 Personal history of other malignant neoplasm of bronchus and lung; Z88.0 Allergy status to penicillin; E83.42 Hypomagnesemia; F32.A Depression, unspecified; I69.398 Other sequelae of cerebral infarction; G93.89 Other specified disorders of brain; N42.83 Cyst of prostate; R53.81 Other malaise; R55 Syncope and collapse; F01.50 Vascular dementia, unspecified severity, without behavioral disturbance, psychotic disturbance, mood disturbance, and anxiety; N40.1 Benign prostatic hyperplasia with lower urinary tract symptoms; R33.8 Other retention of urine
CPT/HCPCS: 36415; 70030-TC; 83735; 84100; 84443; 85025; 97535-GO-CO; A4663; A6213; J0885; J7040; J8499

== ENCOUNTER 2024-08-01 19:23 | Inpatient (IN) | payer MEDICARE ==
[~2024-08-01] VITALS: Ht 167.6 cm; Wt 51.7 kg
[~2024-08-01 19:23] MED LIST changes: +ACET325C7 PO; +DIVA125C5 PO; +DUTA0.5C PO; +ESCI20TA PO; +FERR-68 PO; +FOLI1TAB94 PO; -LEVO125T8 PO; +LEVO500T90 PO; +LIOT25TA13 PO; +MAG-83 PO; +MAGN400O6 PO; -OMEP20TA5 PO; +PANT40TA2 PO; +POTA10CA43 PO; -PREG25CA PO; +TAMS-3 PO
[2024-08-01] MEDS: IV NORMAL SALINE 1000 ML BAG IV ONE (19:52)
[2024-08-01 19:55] LABS: BASOPHILS % (AUTO) 0.1 % (0.0-2.0); EOSINOPHILS % (AUTO) 0.2 % (0.0-7.0); LYMPHOCYTES # (AUTO) 0.9 K/uL (0.8-4.8); LYMPHOCYTES % (AUTO) 4.6 % (20.5-51.5); MEAN CORPUSCULAR HEMOGLOBIN 29.4 uug (23.8-33.4); MEAN CORPUSCULAR HGB CONC 32 g/dL (32.5-36.3); MEAN CORPUSCULAR VOLUME 91.3 fL (73.0-96.2); MONOCYTES # (AUTO) 1.7 K/uL (0.1-1.30); MONOCYTES % (AUTO) 8.5 % (0.0-11.0); NEUTROPHILS # (AUTO) 16.8 K/uL (1.8-8.9); NEUTROPHILS % (AUTO) 86.6 % (38.5-71.5); PLATELET COUNT (AUTO) 272 K/uL (152-348); RED CELL DISTRIBUTION WIDTH 14.5 % (12.1-16.2); WHITE BLOOD COUNT (AUTO) 19.4 K/uL (3.6-10.2)
[2024-08-01 19:56] LABS: RED BLOOD CELL COUNT(AUTO) 2.21 MIL/uL (4.06-5.63)
[2024-08-01 19:57] LABS: DIFFERENTIAL COMMENT 1
[2024-08-01 19:58] LABS: CALCIUM 7.3 mg/dL (8.5-10.1); CARBON DIOXIDE 19 mmol/L (21-32); CHLORIDE 107 mmol/L (98-107); CREATININE 0.9 mg/dL (0.6-1.3); GLUCOSE 104 mg/dL (74-106); POTASSIUM 3.8 mmol/L (3.5-5.1); SODIUM SERUM 137 mmol/L (136-145); UREA NITROGEN, BLOOD 26 mg/dL (7-18)
[2024-08-01 19:59] LABS: HEMATOCRIT 20.2 % (36.7-47.1); HEMOGLOBIN 6.5 g/dL (12.5-16.3)
[2024-08-01 20:10] LABS: ALANINE AMINOTRANSFERASE 14 U/L (16-63); ALKALINE PHOSPHATASE 82 U/L (50-136); ASPARTATE AMINOTRANSFERASE 18 U/L (15-37); BILIRUBIN,DIRECT 0.2 mg/dL (0.0-0.2); BILIRUBIN,TOTAL 0.3 mg/dL (0.2-1.0); NT-PRO BNP 2417 pg/mL (0-125); TOTAL PROTEIN, SERUM 5.6 g/dL (6.4-8.2)
[2024-08-01 20:12] LABS: ALBUMIN 1.1 g/dL (3.4-5.0)
[2024-08-01 20:13] LABS: LACTIC ACID 2.4 mmol/L (0.4-2.0)
[2024-08-01 20:41] LABS: BAND % (MANUAL) 4 % (0-10); LYMPHOCYTES % (MANUAL) 5 % (20-40); MONOCYTES % (MANUAL) 6 % (2-10); NEUTROPHILS % (MANUAL) 85 % (42-75); PLATELET ESTIMATE ADEQUATE
[2024-08-01 20:42] LABS: ANISOCYTOSIS 1+
[2024-08-01] MEDS: PANTOPRAZOLE SODIUM IV 40 MG in IV DEXTROSE 5% 100 ML IV ONE (20:45)
[2024-08-01] MEDS ORDERED: levoFLOXacin 500 MG/D5W 100 ML ONE (20:47)
[2024-08-01] MEDS ORDERED: PANTOPRAZOLE SODIUM 40 MG VIAL ONE (20:47)
[2024-08-01] MEDS ORDERED: ALBUMIN HUMAN 25% 100 ML ONE (20:48)
[2024-08-01 20:51] LABS: *BILIRUBIN,URIN 1+ (NEGATIVE); *BLOOD, URINE NEGATIVE (NEGATIVE); *KETONES,URINE TRACE (NEGATIVE); *PROTEIN,URINE 1+ (NEGATIVE); LEUKOCYTE ESTERASE ,URINE 1+ (NEGATIVE); NITRITE, URINE NEGATIVE (NEGATIVE); PH,URINE 5.5 (5.0-8.0); UGLUCOSE NEGATIVE (NEGATIVE)
[2024-08-01 20:53] LABS: *CLARITY,URINE SLIGHTLY CLOUDY (CLEAR); *COLOR,URINE DARK YELLOW (YELLOW)
[2024-08-01] MEDS ORDERED: OMEP40CA21 PO (20:54)
[2024-08-01] MEDS ORDERED: LEVO150T8 PO (20:54)
[2024-08-01 21:00] LABS: BACTERIA,URINE MANY /HPF (NONE SEEN); RBC,URINE 0-3 /HPF (0-3); WBC,URINE 20-50 /HPF (0-3)
[2024-08-01 21:01] LABS: SQUAMOUS EPITHELIAL CELL,UR FEW /HPF (NONE SEEN)
[2024-08-01] MEDS: levoFLOXacin 500 MG/D5W 100ML PIGGYBACK IV ONE (21:32)
[2024-08-01] MEDS: ALBUMIN HUMAN 25% 100 ML IV ONE (21:33)
[2024-08-01 22:10] LABS: ABG BASE EXCESS -8.1 mmol/L (-2.0-3.0); ABG HCO3 15.5 mmol/L (21.0-28.0); ABG PCO2 24.8 mmHg (35.0-48.0); ABG PH 7.415 (7.350-7.450); ABG PO2 65.8 mmHg (83.0-108.0); ABG SITE RIGHT RADIAL; ABG TOTAL HEMOGLOBIN 7.2 G/dL (13.5-17.5); AaDO2 93.7 mmHg; COHb 0.7 % (0.5-1.5); O2Hb 91.4 % (94.0-98.0)
[2024-08-02] VITALS (47 sets, daily range): BP systolic 88–130; BP diastolic 40–84; TEMP 97.6–97.9; O2SAT 84–97
[2024-08-02] MEDS ORDERED: ACETAMINOPHEN 325 MG TABLET PO PRN (00:45)
[2024-08-02] MEDS ORDERED: ONDANSETRON 4 MG/2 ML VIAL IV PRN (00:45)
[2024-08-02] MEDS ORDERED: MAGNESIUM HYDROXIDE 30 ML LIQUID UDC PO PRN (00:45)
[2024-08-02 01:21] LABS: *OCCULT BLOOD STOOL NEGATIVE (NEGATIVE)
[2024-08-02] MEDS: NOREPINEPHRINE 8MG/NS 250ML 250 ML IV PRN (01:35)
[2024-08-02 07:25] LABS: IRON, SERUM 48 ug/dL (50-175)
[2024-08-02 08:18] LABS: FERRITIN 5105 ng/mL (26-388)
[2024-08-02] MEDS: PANTOPRAZOLE SODIUM 40 MG VIAL IV SCH (09:00)
[2024-08-02] MEDS ORDERED: POTASSIUM CHLORIDE 10 MEQ TAB.PRT.SR PO SCH (09:00)
[2024-08-02] MEDS: LEVOTHYROXINE SODIUM 150 MCG TABLET PO SCH (10:25)
[2024-08-02] MEDS ORDERED: DIVA125T32 PO (10:35)
[2024-08-02] MEDS: ESCITALOPRAM OXALATE 10 MG TABLET PO SCH (11:00)
[2024-08-02] MEDS ORDERED: DIVALPROEX SPRINKLE 125 MG CAP.SPRINK PO SCH ×2 (11:00)
[2024-08-02] MEDS: DIVALPROEX 125 MG TABLET.DR PO SCH (11:00)
[2024-08-02 11:28] LABS: BASOPHILS # (AUTO) 0.2 K/UL (0.0-0.2); BASOPHILS % (AUTO) 0.8 % (0.0-2.0); DIFFERENTIAL COMMENT 1; EOSINOPHILS % (AUTO) 0.1 % (0.0-7.0); HEMATOCRIT 28.2 % (36.7-47.1); HEMOGLOBIN 9.5 g/dL (12.5-16.3); LYMPHOCYTES # (AUTO) 0.3 K/uL (0.8-4.8); LYMPHOCYTES % (AUTO) 1.6 % (20.5-51.5); MEAN CORPUSCULAR HEMOGLOBIN 29.9 uug (23.8-33.4); MEAN CORPUSCULAR HGB CONC 34 g/dL (32.5-36.3); MEAN CORPUSCULAR VOLUME 88.5 fL (73.0-96.2); MONOCYTES # (AUTO) 0.9 K/uL (0.1-1.30); MONOCYTES % (AUTO) 4.8 % (0.0-11.0); NEUTROPHILS # (AUTO) 17.8 K/uL (1.8-8.9); NEUTROPHILS % (AUTO) 92.7 % (38.5-71.5); PLATELET COUNT (AUTO) 280 K/uL (152-348); RED BLOOD CELL COUNT(AUTO) 3.19 MIL/uL (4.06-5.63); RED CELL DISTRIBUTION WIDTH 16.3 % (12.1-16.2); WHITE BLOOD COUNT (AUTO) 19.1 K/uL (3.6-10.2)
[2024-08-02 11:39] LABS: CALCIUM 7.8 mg/dL (8.5-10.1); CARBON DIOXIDE 15 mmol/L (21-32); CHLORIDE 110 mmol/L (98-107); CREATININE 0.6 mg/dL (0.6-1.3); GLUCOSE 89 mg/dL (74-106); POTASSIUM 3.5 mmol/L (3.5-5.1); SODIUM SERUM 141 mmol/L (136-145); UREA NITROGEN, BLOOD 21 mg/dL (7-18)
[2024-08-02] MEDS ORDERED: DIVALPROEX 125 MG TABLET.DR PO ONE (11:59)
[2024-08-02] MEDS ORDERED: ESCITALOPRAM OXALATE 10 MG TABLET ONE (11:59)
[2024-08-02] MEDS: FOLIC ACID 1 MG TABLET PO SCH (13:38)
[2024-08-02] MEDS ORDERED: POTASSIUM BICARBONATE/CIT AC 25 MEQ TABLET.EFF PO SCH (15:00)
[2024-08-02] MEDS: POTASSIUM CHLORIDE 20 MEQ POWDER PACKET GT SCH (17:03)
[2024-08-02] MEDS: IV NS 1000 ML 1,000 ML IV ONE (17:31)
[2024-08-02] MEDS: IV NS 1000 ML 1,000 ML IV PRN (19:04)
[2024-08-03] VITALS (54 sets, daily range): BP systolic 95–143; BP diastolic 43–95; TEMP 97.8–99; O2SAT 89–96
[2024-08-03 05:35] LABS: BASOPHILS % (AUTO) 0.1 % (0.0-2.0); EOSINOPHILS % (AUTO) 0.1 % (0.0-7.0); HEMATOCRIT 25.2 % (36.7-47.1); HEMOGLOBIN 8.8 g/dL (12.5-16.3); LYMPHOCYTES # (AUTO) 0.6 K/uL (0.8-4.8); LYMPHOCYTES % (AUTO) 2.7 % (20.5-51.5); MEAN CORPUSCULAR HEMOGLOBIN 30.1 uug (23.8-33.4); MEAN CORPUSCULAR HGB CONC 35 g/dL (32.5-36.3); MEAN CORPUSCULAR VOLUME 86.4 fL (73.0-96.2); MONOCYTES # (AUTO) 1.4 K/uL (0.1-1.30); MONOCYTES % (AUTO) 6.4 % (0.0-11.0); NEUTROPHILS # (AUTO) 19.9 K/uL (1.8-8.9); NEUTROPHILS % (AUTO) 90.7 % (38.5-71.5); PLATELET COUNT (AUTO) 322 K/uL (152-348); RED BLOOD CELL COUNT(AUTO) 2.92 MIL/uL (4.06-5.63); RED CELL DISTRIBUTION WIDTH 16.4 % (12.1-16.2); WHITE BLOOD COUNT (AUTO) 21.9 K/uL (3.6-10.2)
[2024-08-03 05:37] LABS: DIFFERENTIAL COMMENT 1
[2024-08-03] MEDS: REMEDY ESSENTIAL ZINC PASTE 113 GM TP PRN (05:47)
[2024-08-03 06:12] LABS: CARBON DIOXIDE 19 mmol/L (21-32); CHLORIDE 110 mmol/L (98-107); CREATININE 0.5 mg/dL (0.6-1.3); GLUCOSE 94 mg/dL (74-106); MAGNESIUM 1.4 mg/dL (1.8-2.4); PHOSPHOROUS 2.1 mg/dL (2.5-4.9); POTASSIUM 3.3 mmol/L (3.5-5.1); SODIUM SERUM 140 mmol/L (136-145); UREA NITROGEN, BLOOD 14 mg/dL (7-18)
[2024-08-03] MEDS ORDERED: POTASSIUM CHLORIDE 20 MEQ TAB.PRT.SR PO ONE (08:00)
[2024-08-03] MEDS: POTASSIUM CHLORIDE 20 MEQ POWDER PACKET PO ONE (08:56)
[2024-08-03] MEDS: MAGNESIUM SULFATE/D5W 100 ML IV SCH (08:56)
[2024-08-03] MEDS ORDERED: DIVALPROEX SPRINKLE 125 MG CAP.SPRINK PO SCH (09:00)
[2024-08-03] MEDS: VANCOMYCIN HCL 750 MG in IV DEXTROSE 5% 250 ML IV SCH (10:18)
[2024-08-03] MEDS: CEFEPIME HCL 2 GM in IV DEXTROSE 5% 100 ML IV SCH (14:00)
[2024-08-03] MEDS: NEUTRA PHOS PACKET PO ONE (17:26)
[2024-08-03] MEDS ORDERED: levoFLOXacin 750MG/D5W 750 MG in PREMIXED 1 EACH IV SCH (21:00)
[2024-08-04] VITALS (42 sets, daily range): BP systolic 86–154; BP diastolic 41–97; TEMP 98.4–99; O2SAT 92–96
[2024-08-04] MEDS: PANTOPRAZOLE ORAL SUSPENSION 40 MG SUSPDR.PKT PO SCH (09:16)
[2024-08-04] MEDS ORDERED: MEROPENEM 500 MG in IV NORMAL SALINE 50 ML IV SCH (12:30)
[2024-08-04] MEDS: MEROPENEM 1 G in IV NORMAL SALINE 100 ML IV SCH (14:52)
[2024-08-05] VITALS (98 sets, daily range): BP systolic 71–137; BP diastolic 43–125; TEMP 97.6–98.8; O2SAT 85–97
[2024-08-05] MEDS: LEVOTHYROXINE SODIUM 150 MCG TABLET PO SCH (06:26)
[2024-08-05] MEDS: POTASSIUM CHLORIDE 10 MEQ TAB.PRT.SR PO SCH (08:31)
[2024-08-05] MEDS: VANCOMYCIN IV 1,000 MG in IV DEXTROSE 5% 250 ML IV SCH (10:40)
[2024-08-05 12:01] LABS: BASOPHILS % (AUTO) 0.2 % (0.0-2.0); EOSINOPHILS # (AUTO) 0.1 K/uL (0.0-0.7); EOSINOPHILS % (AUTO) 0.5 % (0.0-7.0); HEMATOCRIT 25.7 % (36.7-47.1); HEMOGLOBIN 8.4 g/dL (12.5-16.3); LYMPHOCYTES # (AUTO) 0.6 K/uL (0.8-4.8); LYMPHOCYTES % (AUTO) 3.6 % (20.5-51.5); MEAN CORPUSCULAR HGB CONC 33 g/dL (32.5-36.3); MONOCYTES # (AUTO) 1.1 K/uL (0.1-1.30); MONOCYTES % (AUTO) 6.4 % (0.0-11.0); NEUTROPHILS # (AUTO) 15.9 K/uL (1.8-8.9); NEUTROPHILS % (AUTO) 89.3 % (38.5-71.5); PLATELET COUNT (AUTO) 216 K/uL (152-348); RED BLOOD CELL COUNT(AUTO) 2.92 MIL/uL (4.06-5.63); WHITE BLOOD COUNT (AUTO) 17.8 K/uL (3.6-10.2)
[2024-08-05 12:07] LABS: CALCIUM 7.7 mg/dL (8.5-10.1); CARBON DIOXIDE 22 mmol/L (21-32); CHLORIDE 108 mmol/L (98-107); CREATININE 0.6 mg/dL (0.6-1.3); GLUCOSE 100 mg/dL (74-106); SODIUM SERUM 139 mmol/L (136-145); UREA NITROGEN, BLOOD 7 mg/dL (7-18)
[2024-08-05 12:21] LABS: DIFFERENTIAL COMMENT 1
[2024-08-05 12:23] LABS: POTASSIUM 2.6 mmol/L (3.5-5.1)
[2024-08-05] MEDS: POTASSIUM CHLORIDE 10 MEQ, LIDOCAINE 1% 1 ML in IV DEXTROSE 5% 100 ML IV SCH (16:37)
[2024-08-06] VITALS (68 sets, daily range): BP systolic 88–126; BP diastolic 44–96; TEMP 97.8–98.9; O2SAT 71–97
[2024-08-06 05:10] LABS: BASOPHILS # (AUTO) 0.1 K/UL (0.0-0.2); BASOPHILS % (AUTO) 0.3 % (0.0-2.0); EOSINOPHILS # (AUTO) 0.1 K/uL (0.0-0.7); EOSINOPHILS % (AUTO) 0.3 % (0.0-7.0); HEMATOCRIT 26.6 % (36.7-47.1); HEMOGLOBIN 8.9 g/dL (12.5-16.3); LYMPHOCYTES # (AUTO) 0.7 K/uL (0.8-4.8); LYMPHOCYTES % (AUTO) 3.6 % (20.5-51.5); MEAN CORPUSCULAR HEMOGLOBIN 29.1 uug (23.8-33.4); MEAN CORPUSCULAR HGB CONC 34 g/dL (32.5-36.3); MEAN CORPUSCULAR VOLUME 86.4 fL (73.0-96.2); MONOCYTES # (AUTO) 1.1 K/uL (0.1-1.30); MONOCYTES % (AUTO) 6.1 % (0.0-11.0); NEUTROPHILS # (AUTO) 16.8 K/uL (1.8-8.9); NEUTROPHILS % (AUTO) 89.7 % (38.5-71.5); PLATELET COUNT (AUTO) 232 K/uL (152-348); RED BLOOD CELL COUNT(AUTO) 3.08 MIL/uL (4.06-5.63); RED CELL DISTRIBUTION WIDTH 15.8 % (12.1-16.2); WHITE BLOOD COUNT (AUTO) 18.7 K/uL (3.6-10.2)
[2024-08-06 05:18] LABS: DIFFERENTIAL COMMENT 1
[2024-08-06 05:27] LABS: CALCIUM 7.9 mg/dL (8.5-10.1); CARBON DIOXIDE 23 mmol/L (21-32); CHLORIDE 108 mmol/L (98-107); CREATININE 0.6 mg/dL (0.6-1.3); GLUCOSE 83 mg/dL (74-106); MAGNESIUM 1.6 mg/dL (1.8-2.4); PHOSPHOROUS 1.4 mg/dL (2.5-4.9); POTASSIUM 3.3 mmol/L (3.5-5.1); SODIUM SERUM 138 mmol/L (136-145); UREA NITROGEN, BLOOD 6 mg/dL (7-18)
[2024-08-06] MEDS: POTASSIUM CHLORIDE 50 ML IV SCH (08:26)
[2024-08-06] MEDS: MAGNESIUM SULFATE/D5W 100 ML IV SCH (08:26)
[2024-08-06] MEDS ORDERED: POTASSIUM PHOSPHATE MM 15 MMOL in IV NORMAL SALINE 250 ML IV ONE (08:30)
[2024-08-06] MEDS ORDERED: MAGNESIUM SULFATE/D5W 100 ML IV SCH (08:30)
[2024-08-06] MEDS: MIDODRINE HCL 5 MG TABLET PO SCH (08:31)
[2024-08-06] MEDS: POTASSIUM PHOSPHATE MM 15 MMOL in IV NORMAL SALINE 250 ML IV ONE (09:01)
[2024-08-06] MEDS: ALBUTEROL SULFATE 1.25 MG/3 ML NEBU NEB PRN (21:10)
[2024-08-07] VITALS (21 sets, daily range): BP systolic 95–138; BP diastolic 45–107; TEMP 97.4–98.6; O2SAT 86–99
[2024-08-07 05:10] LABS: BASOPHILS % (AUTO) 0.2 % (0.0-2.0); EOSINOPHILS # (AUTO) 0.1 K/uL (0.0-0.7); EOSINOPHILS % (AUTO) 0.4 % (0.0-7.0); HEMATOCRIT 23.3 % (36.7-47.1); HEMOGLOBIN 7.9 g/dL (12.5-16.3); LYMPHOCYTES # (AUTO) 0.8 K/uL (0.8-4.8); LYMPHOCYTES % (AUTO) 5.5 % (20.5-51.5); MEAN CORPUSCULAR HEMOGLOBIN 29.3 uug (23.8-33.4); MEAN CORPUSCULAR HGB CONC 34 g/dL (32.5-36.3); MONOCYTES % (AUTO) 7.1 % (0.0-11.0); NEUTROPHILS # (AUTO) 12.8 K/uL (1.8-8.9); NEUTROPHILS % (AUTO) 86.8 % (38.5-71.5); PLATELET COUNT (AUTO) 233 K/uL (152-348); RED BLOOD CELL COUNT(AUTO) 2.71 MIL/uL (4.06-5.63); RED CELL DISTRIBUTION WIDTH 16.1 % (12.1-16.2); WHITE BLOOD COUNT (AUTO) 14.7 K/uL (3.6-10.2)
[2024-08-07 05:11] LABS: DIFFERENTIAL COMMENT 1
[2024-08-07 05:20] LABS: ALANINE AMINOTRANSFERASE 65 U/L (16-63); ALKALINE PHOSPHATASE 98 U/L (50-136); ASPARTATE AMINOTRANSFERASE 74 U/L (15-37); BILIRUBIN,DIRECT 0.2 mg/dL (0.0-0.2); BILIRUBIN,TOTAL 0.4 mg/dL (0.2-1.0); CALCIUM 6.9 mg/dL (8.5-10.1); CARBON DIOXIDE 24 mmol/L (21-32); CHLORIDE 107 mmol/L (98-107); CREATININE 0.4 mg/dL (0.6-1.3); GLUCOSE 81 mg/dL (74-106); MAGNESIUM 1.9 mg/dL (1.8-2.4); PHOSPHOROUS 1.6 mg/dL (2.5-4.9); POTASSIUM 3.6 mmol/L (3.5-5.1); SODIUM SERUM 138 mmol/L (136-145); TOTAL PROTEIN, SERUM 5.2 g/dL (6.4-8.2); UREA NITROGEN, BLOOD 7 mg/dL (7-18)
[2024-08-07 05:23] LABS: ALBUMIN 0.9 g/dL (3.4-5.0)
[2024-08-07] MEDS: POTASSIUM PHOSPHATE MM 15 MMOL in IV NORMAL SALINE 250 ML IV ONE (11:00)
[2024-08-08] VITALS (12 sets, daily range): BP systolic 101–112; BP diastolic 48–65; TEMP 97.8–98.4; O2SAT 76–95
[2024-08-08 07:26] LABS: BASOPHILS % (AUTO) 0.2 % (0.0-2.0); EOSINOPHILS # (AUTO) 0.1 K/uL (0.0-0.7); EOSINOPHILS % (AUTO) 0.4 % (0.0-7.0); HEMATOCRIT 28.1 % (36.7-47.1); LYMPHOCYTES # (AUTO) 0.9 K/uL (0.8-4.8); MEAN CORPUSCULAR HEMOGLOBIN 28.9 uug (23.8-33.4); MEAN CORPUSCULAR HGB CONC 32 g/dL (32.5-36.3); MEAN CORPUSCULAR VOLUME 89.7 fL (73.0-96.2); MONOCYTES # (AUTO) 1.2 K/uL (0.1-1.30); MONOCYTES % (AUTO) 7.9 % (0.0-11.0); NEUTROPHILS # (AUTO) 12.9 K/uL (1.8-8.9); NEUTROPHILS % (AUTO) 85.5 % (38.5-71.5); PLATELET COUNT (AUTO) 271 K/uL (152-348); RED BLOOD CELL COUNT(AUTO) 3.13 MIL/uL (4.06-5.63); RED CELL DISTRIBUTION WIDTH 16.4 % (12.1-16.2); WHITE BLOOD COUNT (AUTO) 15.1 K/uL (3.6-10.2)
[2024-08-08 07:41] LABS: CALCIUM 7.3 mg/dL (8.5-10.1); CARBON DIOXIDE 25 mmol/L (21-32); CHLORIDE 104 mmol/L (98-107); CREATININE 0.4 mg/dL (0.6-1.3); DIFFERENTIAL COMMENT 1; GLUCOSE 72 mg/dL (74-106); PHOSPHOROUS 1.9 mg/dL (2.5-4.9); POTASSIUM 3.5 mmol/L (3.5-5.1); SODIUM SERUM 139 mmol/L (136-145); UREA NITROGEN, BLOOD 7 mg/dL (7-18)
[2024-08-08] MEDS: POTASSIUM PHOSPHATE MM 15 MMOL in IV NORMAL SALINE 250 ML IV ONE (09:04)
[2024-08-08 10:04] LABS: ANISOCYTOSIS 1+; BAND % (MANUAL) 1 % (0-10); LYMPHOCYTES % (MANUAL) 5 % (20-40); MONOCYTES % (MANUAL) 3 % (2-10); MYELOCYTES % 1 % (0-0); NEUTROPHILS % (MANUAL) 90 % (42-75); PLATELET ESTIMATE ADEQUATE
[2024-08-08] MEDS: PROTEIN SUPPLEMENT (PROSTAT) 30 ML LIQUID PO SCH (11:56)
[2024-08-09 04:38] VITALS: BP 94/62; TEMP 98.1; O2SAT 94
[2024-08-09 07:34] LABS: BASOPHILS % (AUTO) 0.3 % (0.0-2.0); EOSINOPHILS # (AUTO) 0.1 K/uL (0.0-0.7); EOSINOPHILS % (AUTO) 0.5 % (0.0-7.0); HEMATOCRIT 28.9 % (36.7-47.1); HEMOGLOBIN 9.5 g/dL (12.5-16.3); LYMPHOCYTES % (AUTO) 6.6 % (20.5-51.5); MEAN CORPUSCULAR HEMOGLOBIN 29.3 uug (23.8-33.4); MEAN CORPUSCULAR HGB CONC 33 g/dL (32.5-36.3); MEAN CORPUSCULAR VOLUME 89.5 fL (73.0-96.2); MONOCYTES # (AUTO) 1.2 K/uL (0.1-1.30); MONOCYTES % (AUTO) 8.2 % (0.0-11.0); NEUTROPHILS # (AUTO) 12.3 K/uL (1.8-8.9); NEUTROPHILS % (AUTO) 84.4 % (38.5-71.5); PLATELET COUNT (AUTO) 266 K/uL (152-348); RED BLOOD CELL COUNT(AUTO) 3.23 MIL/uL (4.06-5.63); WHITE BLOOD COUNT (AUTO) 14.6 K/uL (3.6-10.2)
[2024-08-09 07:45] LABS: DIFFERENTIAL COMMENT 1
[2024-08-09 08:05] LABS: ALANINE AMINOTRANSFERASE 52 U/L (16-63); ALKALINE PHOSPHATASE 97 U/L (50-136); ASPARTATE AMINOTRANSFERASE 47 U/L (15-37); BILIRUBIN,DIRECT 0.2 mg/dL (0.0-0.2); BILIRUBIN,TOTAL 0.5 mg/dL (0.2-1.0); CALCIUM 7.9 mg/dL (8.5-10.1); CARBON DIOXIDE 27 mmol/L (21-32); CHLORIDE 104 mmol/L (98-107); CREATININE 0.5 mg/dL (0.6-1.3); GLUCOSE 68 mg/dL (74-106); MAGNESIUM 1.9 mg/dL (1.8-2.4); POTASSIUM 3.5 mmol/L (3.5-5.1); SODIUM SERUM 137 mmol/L (136-145); UREA NITROGEN, BLOOD 6 mg/dL (7-18)
[2024-08-09 08:15] LABS: ALBUMIN 1.1 g/dL (3.4-5.0)
[2024-08-09] MEDS: POTASSIUM PHOSPHATE MM 7.5 MMOL in IV NORMAL SALINE 97.5 ML IV ONE (10:39)
[2024-08-09 11:42] VITALS: BP 134/50; TEMP 97.8; O2SAT 100
[2024-08-09 16:10] VITALS: BP 120/67; TEMP 98.5; O2SAT 96
[2024-08-09 17:27] VITALS: O2SAT 95
[2024-08-09 19:00] VITALS: BP 115/59; TEMP 98.2; O2SAT 93
[2024-08-10] VITALS (8 sets, daily range): BP systolic 109–130; BP diastolic 55–77; TEMP 97.5–97.8; O2SAT 75–97
[2024-08-10 06:52] LABS: BASOPHILS % (AUTO) 0.2 % (0.0-2.0); EOSINOPHILS % (AUTO) 0.2 % (0.0-7.0); HEMATOCRIT 24.7 % (36.7-47.1); HEMOGLOBIN 8.3 g/dL (12.5-16.3); LYMPHOCYTES # (AUTO) 0.9 K/uL (0.8-4.8); LYMPHOCYTES % (AUTO) 6.4 % (20.5-51.5); MEAN CORPUSCULAR HEMOGLOBIN 29.9 uug (23.8-33.4); MEAN CORPUSCULAR HGB CONC 34 g/dL (32.5-36.3); MEAN CORPUSCULAR VOLUME 88.7 fL (73.0-96.2); MONOCYTES # (AUTO) 1.1 K/uL (0.1-1.30); MONOCYTES % (AUTO) 8.1 % (0.0-11.0); NEUTROPHILS # (AUTO) 12.1 K/uL (1.8-8.9); NEUTROPHILS % (AUTO) 85.1 % (38.5-71.5); PLATELET COUNT (AUTO) 290 K/uL (152-348); RED BLOOD CELL COUNT(AUTO) 2.79 MIL/uL (4.06-5.63); RED CELL DISTRIBUTION WIDTH 15.7 % (12.1-16.2); WHITE BLOOD COUNT (AUTO) 14.2 K/uL (3.6-10.2)
[2024-08-10 06:58] LABS: CALCIUM 7.1 mg/dL (8.5-10.1); CARBON DIOXIDE 27 mmol/L (21-32); CHLORIDE 103 mmol/L (98-107); CREATININE 0.4 mg/dL (0.6-1.3); GLUCOSE 61 mg/dL (74-106); MAGNESIUM 1.7 mg/dL (1.8-2.4); PHOSPHOROUS 2.2 mg/dL (2.5-4.9); POTASSIUM 3.4 mmol/L (3.5-5.1); SODIUM SERUM 135 mmol/L (136-145); UREA NITROGEN, BLOOD 6 mg/dL (7-18)
[2024-08-10 07:12] LABS: DIFFERENTIAL COMMENT 1
[2024-08-10] MEDS: POTASSIUM CHLORIDE 20 MEQ POWDER PACKET PO SCH (09:15)
[2024-08-10] MEDS: MAGNESIUM OXIDE 400 MG TABLET PO ONE (12:08)
[2024-08-10] MEDS: NEUTRA PHOS PACKET PO ONE (12:50)
[2024-08-11 04:09] VITALS: O2SAT 95
[2024-08-11 06:00] VITALS: BP 112/58; TEMP 97.8; O2SAT 94
[2024-08-11 07:10] LABS: CALCIUM 7.6 mg/dL (8.5-10.1); CARBON DIOXIDE 29 mmol/L (21-32); CHLORIDE 102 mmol/L (98-107); CREATININE 0.4 mg/dL (0.6-1.3); GLUCOSE 65 mg/dL (74-106); MAGNESIUM 1.9 mg/dL (1.8-2.4); POTASSIUM 3.7 mmol/L (3.5-5.1); SODIUM SERUM 136 mmol/L (136-145); UREA NITROGEN, BLOOD 7 mg/dL (7-18)
[2024-08-11 11:55] VITALS: BP_SYST 110; BP_DIAS 6; BP_DIAS 68; TEMP 98.1; O2SAT 95
[2024-08-11 16:05] VITALS: BP 109/56; TEMP 98; O2SAT 93
[2024-08-11 16:06] VITALS: O2SAT 96
[2024-08-11 20:29] VITALS: BP 105/57; TEMP 98.2; O2SAT 91
[2024-08-12 00:14] VITALS: O2SAT 96
[2024-08-12 05:30] VITALS: BP 105/53; TEMP 98.3; O2SAT 93
[2024-08-12 06:51] LABS: BASOPHILS # (AUTO) 0.1 K/UL (0.0-0.2); BASOPHILS % (AUTO) 0.6 % (0.0-2.0); DIFFERENTIAL COMMENT 0; EOSINOPHILS % (AUTO) 0.3 % (0.0-7.0); HEMATOCRIT 23.9 % (36.7-47.1); HEMOGLOBIN 8.1 g/dL (12.5-16.3); LYMPHOCYTES # (AUTO) 0.9 K/uL (0.8-4.8); LYMPHOCYTES % (AUTO) 8.2 % (20.5-51.5); MEAN CORPUSCULAR HEMOGLOBIN 29.7 uug (23.8-33.4); MEAN CORPUSCULAR HGB CONC 34 g/dL (32.5-36.3); MEAN CORPUSCULAR VOLUME 88.2 fL (73.0-96.2); MONOCYTES # (AUTO) 0.9 K/uL (0.1-1.30); MONOCYTES % (AUTO) 7.8 % (0.0-11.0); NEUTROPHILS # (AUTO) 9.4 K/uL (1.8-8.9); NEUTROPHILS % (AUTO) 83.1 % (38.5-71.5); PLATELET COUNT (AUTO) 336 K/uL (152-348); RED BLOOD CELL COUNT(AUTO) 2.71 MIL/uL (4.06-5.63); RED CELL DISTRIBUTION WIDTH 15.4 % (12.1-16.2); WHITE BLOOD COUNT (AUTO) 11.4 K/uL (3.6-10.2)
[2024-08-12 07:40] VITALS: O2SAT 94
[2024-08-12 07:59] LABS: ALANINE AMINOTRANSFERASE 27 U/L (16-63); ALKALINE PHOSPHATASE 83 U/L (50-136); ASPARTATE AMINOTRANSFERASE 23 U/L (15-37); BILIRUBIN,TOTAL 0.6 mg/dL (0.2-1.0); CALCIUM 7.6 mg/dL (8.5-10.1); CARBON DIOXIDE 29 mmol/L (21-32); CHLORIDE 101 mmol/L (98-107); CREATININE 0.4 mg/dL (0.6-1.3); GLUCOSE 61 mg/dL (74-106); MAGNESIUM 1.9 mg/dL (1.8-2.4); PHOSPHOROUS 2.2 mg/dL (2.5-4.9); POTASSIUM 3.6 mmol/L (3.5-5.1); SODIUM SERUM 135 mmol/L (136-145); TOTAL PROTEIN, SERUM 5.8 g/dL (6.4-8.2); UREA NITROGEN, BLOOD 7 mg/dL (7-18)
[2024-08-12 08:34] LABS: ALBUMIN 1.1 g/dL (3.4-5.0)
[2024-08-12 11:12] VITALS: BP 100/55; TEMP 98.6; O2SAT 92
[2024-08-12] MEDS ORDERED: ALBU1.25 NEB (15:28)
[2024-08-12] MEDS ORDERED: PROT30LI PO (15:28)
[2024-08-12] MEDS ORDERED: MIDO5TAB4 PO (15:28)
[2024-08-12] MEDS ORDERED: ACET325T53 PO (15:28)
[2024-08-12 16:07] VITALS: BP 108/43; TEMP 98.4; O2SAT 94
[2024-08-12] MEDS: NEUTRA PHOS PACKET PO ONE (16:11)
== END 2024-08-12 17:59 | DRG 871 ==
LOC: ER 19:43 → ICU IN 08-02 01:00 → CCU 08-02 11:57 → TELE3 08-07 16:10 → MEDSURG3 08-08 08:40
PROC: 30233N1 Transfusion of Nonautologous Red Blood Cells into Peripheral Vein, Percutaneous Approach (ICD-10-PCS; principal; 2024-08-01)
PROC: 02HV33Z Insertion of Infusion Device into Superior Vena Cava, Percutaneous Approach (ICD-10-PCS; 2024-08-02)
DX: A41.9 Sepsis, unspecified organism (principal); E43 Unspecified severe protein-calorie malnutrition; G92.8 Other toxic encephalopathy; J15.69 Pneumonia due to other Gram-negative bacteria; J18.9 Pneumonia, unspecified organism; J96.01 Acute respiratory failure with hypoxia; R65.21 Severe sepsis with septic shock; T83.511A Infection and inflammatory reaction due to indwelling urethral catheter, initial encounter; J91.8 Pleural effusion in other conditions classified elsewhere; N39.0 Urinary tract infection, site not specified; C34.2 Malignant neoplasm of middle lobe, bronchus or lung; C34.31 Malignant neoplasm of lower lobe, right bronchus or lung; D68.59 Other primary thrombophilia; Z68.1 Body mass index [BMI] 19.9 or less, adult; E87.20 Acidosis, unspecified; J98.11 Atelectasis; K92.2 Gastrointestinal hemorrhage, unspecified; Z66 Do not resuscitate; B96.89 Other specified bacterial agents as the cause of diseases classified elsewhere; Y73.8 Miscellaneous gastroenterology and urology devices associated with adverse incidents, not elsewhere classified; Y92.099 Unspecified place in other non-institutional residence as the place of occurrence of the external cause; D64.9 Anemia, unspecified; J43.9 Emphysema, unspecified; D50.0 Iron deficiency anemia secondary to blood loss (chronic); Z85.72 Personal history of non-Hodgkin lymphomas; Z74.09 Other reduced mobility; M51.369 Other intervertebral disc degeneration, lumbar region without mention of lumbar back pain or lower extremity pain; M80.08XD Age-related osteoporosis with current pathological fracture, vertebra(e), subsequent encounter for fracture with routine healing; E88.09 Other disorders of plasma-protein metabolism, not elsewhere classified; M47.816 Spondylosis without myelopathy or radiculopathy, lumbar region; E87.6 Hypokalemia; E03.9 Hypothyroidism, unspecified; G89.29 Other chronic pain; Z79.890 Hormone replacement therapy; Z79.899 Other long term (current) drug therapy; Z79.82 Long term (current) use of aspirin; E78.5 Hyperlipidemia, unspecified; I11.9 Hypertensive heart disease without heart failure; Z88.0 Allergy status to penicillin; Z86.73 Personal history of transient ischemic attack (TIA), and cerebral infarction without residual deficits; Y84.6 Urinary catheterization as the cause of abnormal reaction of the patient, or of later complication, without mention of misadventure at the time of the procedure; F32.A Depression, unspecified; K21.9 Gastro-esophageal reflux disease without esophagitis; G31.84 Mild cognitive impairment of uncertain or unknown etiology; I70.0 Atherosclerosis of aorta; Z78.1 Physical restraint status
CPT/HCPCS: 36415; 36600; 70450; 71045; 71250; 76604; 82746; 82803; 83550; 83605; 83735; 84100; 84443; 85025; 85610; 85730; 86140; 86850; 86900; 86901; 86920; 87040; 87086; 93307; 94640; 94760; A4606; A6213; G0378; J0692; J1956; J2003; J2185; J2470; J3370; J3475; J3480; J3490; J7040; J7050; P9016; P9047